=== PATIENT | male | born 1975 | race Caucasian/White ===

== ENCOUNTER 2016-08-12 19:11 | Inpatient (IN) | payer MEDICAID ==
[~2016-08-12] VITALS: Ht 167.6 cm; Wt 142.9 kg
[2016-08-12 20:00] VITALS: BP 142/85
[2016-08-12 20:04] LABS: Basophils # (auto) 0 uL; Basophils % (auto) 0.2 % (0.0-2.0); Eosinophils # (auto) 0.1 uL; Eosinophils % (auto) 1.7 % (0.0-7.0); Hematocrit 38.7 % (41.0-53.0); Hemoglobin 12.6 g/dL (13.5-17.5); Lymphocytes # (auto) 4.6 uL; Lymphocytes % (auto) 54.6 % (10.0-50.0); Mean Corpuscular Hemoglobin 27.1 pg (28.0-32.0); Mean Corpuscular Hgb Conc. 32.7 g/dL (32.0-36.0); Mean Corpuscular Volume 82.9 fL (80.0-100.0); Mean Platelet Volume 7.3 fL (7.4-10.4); Monocytes # (auto) 0.6 uL; Monocytes % (auto) 7.5 % (0.0-12.0); Platelet Count (auto) 236 10^3/uL (140-450); Red Cell Distribution Width 17.9 % (11.6-16.0); White Blood Cell 8.4 10^3/uL (4.4-10.8)
[2016-08-12 20:33] LABS: Albumin 3.1 g/dL (3.4-5.0); BUN/Creatinine Ratio 14.1; Bilirubin, Total 0.5 mg/dL (0.2-1.0); Calcium 8.7 mg/dL (8.5-10.1); Potassium 3.4 mmol/L (3.5-5.1); Total Protein 6.8 g/dL (6.4-8.2)
[2016-08-12 20:41] LABS: Urine Bilirubin Negative (Negative); Urine Blood Negative /uL (Negative); Urine Color Yellow (Yellow); Urine Glucose Normal (Normal); Urine Ketone Negative (Negative); Urine Mucus FEW (None Seen); Urine Nitrite Negative (Negative); Urine RBC <1 /hpf (0 - 3); Urine Squamous Epithelial Cell FEW /hpf (<5); Urine Urobilinogen Normal (Negative)
[2016-08-12] MEDS ORDERED: cefTRIAXone 1GM/50ML D5W 50 ML IV ONE (21:15)
[2016-08-12] MEDS ORDERED: HYDROcodone-ACET 10/325MG TAB PO ONE (21:30)
[2016-08-12] MEDS ORDERED: LEVOFLOXACIN 500MG 100 ML IV ONE (23:00)
[2016-08-12] MEDS ORDERED: HYDROmorphone HCL 2 MG/ML VL IV PRN (23:00)
[2016-08-12] MEDS ORDERED: ONDANSETRON HCL 4 MG/2 ML VIAL IV PRN (23:00)
[2016-08-12] MEDS: SODIUM CHLORIDE 0.9% 1,000 ML IV SCH (23:38)
[2016-08-13] VITALS (8 sets, daily range): BP systolic 104–150; BP diastolic 67–94
[2016-08-13] MEDS: ALBUTEROL SULF 2.5 MG/0.5ML(0.5%) NEB SOLN NEB PRN ×4 (03:10→22:34)
[2016-08-13] MEDS: IPRATROPIUM BROM 0.5 MG/2.5ML INH SOL NEB SCH ×6 (03:10→22:34)
[2016-08-13 06:32] LABS: Basophils # (auto) 0 uL; Basophils % (auto) 0.2 % (0.0-2.0); Eosinophils # (auto) 0.2 uL; Eosinophils % (auto) 2.1 % (0.0-7.0); Hematocrit 38.2 % (41.0-53.0); Hemoglobin 12.3 g/dL (13.5-17.5); Lymphocytes # (auto) 4.6 uL; Lymphocytes % (auto) 54.6 % (10.0-50.0); Mean Corpuscular Hemoglobin 27.3 pg (28.0-32.0); Mean Corpuscular Hgb Conc. 32.3 g/dL (32.0-36.0); Mean Corpuscular Volume 84.4 fL (80.0-100.0); Mean Platelet Volume 7.5 fL (7.4-10.4); Monocytes # (auto) 0.8 uL; Neutrophils # (auto) 2.9 uL; Neutrophils % (auto) 34.1 % (37.0-80.0); Platelet Count (auto) 216 10^3/uL (140-450); White Blood Cell 8.4 10^3/uL (4.4-10.8)
[2016-08-13 06:52] LABS: Albumin 2.9 g/dL (3.4-5.0); Calcium 7.9 mg/dL (8.5-10.1); Potassium 3.8 mmol/L (3.5-5.1)
[2016-08-13 06:54] LABS: BUN/Creatinine Ratio 15.2
[2016-08-13 07:07] LABS: Bilirubin, Total 0.3 mg/dL (0.2-1.0); Total Protein 6.7 g/dL (6.4-8.2)
[2016-08-13] MEDS ORDERED: HYDR-531 PO (08:59)
[2016-08-13] MEDS ORDERED: SACC250C PO (08:59)
[2016-08-13] MEDS ORDERED: LEVO-28 PO (08:59)
[2016-08-13] MEDS: SODIUM CHLORIDE 0.9% 1,000 ML IV SCH ×3 (09:02→18:53)
[2016-08-13] MEDS ORDERED: LEVOFLOXACIN 500MG 100 ML IV SCH (22:00)
[2016-08-13] MEDS ORDERED: cefTRIAXone 1GM/50ML D5W 50 ML IV SCH (22:00)
[2016-08-14] MEDS: SODIUM CHLORIDE 0.9% 1,000 ML IV SCH ×2 (00:11→06:41)
[2016-08-14] MEDS: ALBUTEROL SULF 2.5 MG/0.5ML(0.5%) NEB SOLN NEB PRN ×2 (02:40→07:38)
[2016-08-14] MEDS: IPRATROPIUM BROM 0.5 MG/2.5ML INH SOL NEB SCH ×3 (02:40→10:58)
[2016-08-14 05:00] VITALS: BP_SYST 109; BP_SYST 130; BP_DIAS 64; BP_DIAS 67
[2016-08-14 07:15] LABS: Basophils # (auto) 0 uL; Basophils % (auto) 0.3 % (0.0-2.0); Eosinophils # (auto) 0.1 uL; Eosinophils % (auto) 1.5 % (0.0-7.0); Hematocrit 38.8 % (41.0-53.0); Hemoglobin 12.5 g/dL (13.5-17.5); Lymphocytes % (auto) 45.6 % (10.0-50.0); Mean Corpuscular Hgb Conc. 32.2 g/dL (32.0-36.0); Mean Corpuscular Volume 83.8 fL (80.0-100.0); Mean Platelet Volume 7.2 fL (7.4-10.4); Monocytes # (auto) 0.6 uL; Monocytes % (auto) 7.3 % (0.0-12.0); Neutrophils # (auto) 3.9 uL; Neutrophils % (auto) 45.3 % (37.0-80.0); Platelet Count (auto) 248 10^3/uL (140-450); Red Cell Distribution Width 18.1 % (11.6-16.0); White Blood Cell 8.7 10^3/uL (4.4-10.8)
[2016-08-14 07:31] LABS: BUN/Creatinine Ratio 10.2; Calcium 7.8 mg/dL (8.5-10.1)
[2016-08-14 07:34] LABS: Bilirubin, Total 0.5 mg/dL (0.2-1.0)
[2016-08-14 08:00] VITALS: BP 157/92
[2016-08-14 09:00] VITALS: BP 157/92
[2016-08-14] MEDS ORDERED: LEVOFLOXACIN 500MG 100 ML IV SCH (10:00)
[2016-08-14 12:28] VITALS: BP 126/85
[2016-08-14 12:57] VITALS: BP 126/85
== END 2016-08-14 13:30 | disposition home or self-care (01) | DRG 501 ==
LOC: ER 19:12 → OVERFLOW 19:13 → WEST WING 23:46
PROVIDERS: ADMIT Family Medicine; ATTEND Internal Medicine
DX: N45.1 Epididymitis (principal); E44.0 Moderate protein-calorie malnutrition; Z88.2 Allergy status to sulfonamides; Z88.8 Allergy status to other drugs, medicaments and biological substances; Z68.43 Body mass index [BMI] 50.0-59.9, adult; E66.01 Morbid (severe) obesity due to excess calories; J45.909 Unspecified asthma, uncomplicated; N43.3 Hydrocele, unspecified; N49.2 Inflammatory disorders of scrotum; S30.22XA Contusion of scrotum and testes, initial encounter; Z71.89 Other specified counseling; Z80.9 Family history of malignant neoplasm, unspecified; R79.89 Other specified abnormal findings of blood chemistry
CPT/HCPCS: 36415; 76870; 80053; 81001; 85025; 94640; 96365; 96375; J0696; J1956; J2405

== ENCOUNTER 2016-12-24 17:47 | Emergency (ER) | payer MEDICAID ==
[~2016-12-24] VITALS: Ht 167.6 cm; Wt 136.1 kg
[~2016-12-24 17:47] MED LIST: HYDR-531 PO; LEVO-28 PO; SACC250C PO
[2016-12-24 22:33] VITALS: BP 139/92
== END 2016-12-24 23:25 | disposition home or self-care (01) ==
LOC: ER 17:51
DX: T82.49XA Other complication of vascular dialysis catheter, initial encounter (principal); Z46.6 Encounter for fitting and adjustment of urinary device; J45.909 Unspecified asthma, uncomplicated; Z87.442 Personal history of urinary calculi; Z88.2 Allergy status to sulfonamides; Z88.8 Allergy status to other drugs, medicaments and biological substances

== ENCOUNTER 2016-12-27 16:03 | Emergency (ER) | payer MEDICAID ==
[~2016-12-27] VITALS: Ht 167.6 cm; Wt 136.1 kg
[2016-12-27 16:30] LABS: Hemoglobin 12.9 g/dL (13.5-17.5); Mean Corpuscular Hemoglobin 26.7 pg (28.0-32.0); Monocytes # (auto) 1.1 uL; Neutrophils % (auto) 64.5 % (37.0-80.0)
[2016-12-27 16:32] LABS: Basophils # (auto) 0.2 uL; Basophils % (auto) 1.5 % (0.0-2.0); Eosinophils # (auto) 0.3 uL; Eosinophils % (auto) 2.3 % (0.0-7.0); Hematocrit 39.3 % (41.0-53.0); Lymphocytes # (auto) 2.7 uL; Lymphocytes % (auto) 22.3 % (10.0-50.0); Mean Corpuscular Hgb Conc. 32.9 g/dL (32.0-36.0); Mean Corpuscular Volume 81.2 fL (80.0-100.0); Mean Platelet Volume 7.7 fL (6.9-10.8); Monocytes % (auto) 9.4 % (0.0-12.0); Neutrophils # (auto) 7.7 uL; Platelet Count (auto) 80 10^3/uL (140-450); Red Cell Distribution Width 17.8 % (11.8-14.3); White Blood Cell 11.9 10^3/uL (4.4-10.8)
[2016-12-27 16:50] LABS: Albumin 3.3 g/dL (3.4-5.0); Bilirubin, Total 0.4 mg/dL (0.2-1.0); Calcium 8.6 mg/dL (8.5-10.1); Potassium 3.8 mmol/L (3.5-5.1); Total Protein 7.4 g/dL (6.4-8.2)
[2016-12-28 04:45] VITALS: BP 128/76
== END 2016-12-28 05:40 | disposition home or self-care (01) ==
LOC: ER 16:08
DX: R19.7 Diarrhea, unspecified (principal); J45.909 Unspecified asthma, uncomplicated; E66.01 Morbid (severe) obesity due to excess calories; Z87.442 Personal history of urinary calculi; Z88.2 Allergy status to sulfonamides; Z68.42 Body mass index [BMI] 45.0-49.9, adult
CPT/HCPCS: 36415; 80053; 81002; 85025

== ENCOUNTER 2019-04-22 19:30 | Inpatient (IN) | payer MEDICAID ==
[~2019-04-22] VITALS: Ht 165.1 cm; Wt 138.1 kg
[2019-04-22 19:30] VITALS: BP 103/69
[~2019-04-22 19:30] MED LIST changes: +ASPI81CH43 GT; +BENZ100C97 PO; +CHOL200031 PO; +DOCU100T15 PO; +DOXY100C2 PO; +FENO145T27 OR; +FURO40TA4 PO; +HYDR-4924 PO; +IBUP600T27 PO; +NAPR375T27 PO; +POTA10TA51 PO
[2019-04-22 20:00] VITALS: BP 103/69
[2019-04-22] MEDS ORDERED: ALBUTEROL SULF 2.5 MG/0.5ML(0.5%) NEB SOLN NEB PRN (20:00)
[2019-04-22] MEDS ORDERED: ONDANSETRON HCL 4 MG/2 ML VIAL IV PRN (20:00)
[2019-04-22] MEDS ORDERED: NITROGLYCERIN 0.4 MG SL TAB SL PRN (20:00)
[2019-04-22] MEDS ORDERED: MORPHINE SULF INJ 2 MG/ML SYRINGE 1ML IV PRN ×2 (20:00)
[2019-04-22] MEDS ORDERED: IPRATROPIUM BROM 0.5 MG/2.5ML INH SOL NEB PRN (20:00)
[2019-04-22] MEDS ORDERED: DEXTROSE (50%) 50ML SYRG IV PRN (20:00)
[2019-04-22] MEDS: InsuLIN REG 1unit/0.01ml Soln (100units/ml) SC SCH (21:50)
[2019-04-22] MEDS ORDERED: INSULIN LANTUS (GLARGINE) 1 /0.01ml (100units/ml) SC SCH ×2 (22:00)
[2019-04-22] MEDS: ACCU-CHEK COMFORT CURVE STRIP VI SCH (22:06)
[2019-04-22] MEDS: FAMOTIDINE (10MG/ML) 2ML VL IV SCH (22:06)
[2019-04-22] MEDS: AMIODARONE HCL 200 MG TAB PO SCH (22:06)
[2019-04-22] MEDS: HYDROcodone-ACET 5/325MG TAB PO PRN (22:15)
[2019-04-22 22:47] VITALS: BP 103/69
[2019-04-23] VITALS: BP 112/63
[2019-04-23 04:00] VITALS: BP 125/80
[2019-04-23 05:56] LABS: Basophils # (auto) 0.1 uL; Mean Corpuscular Hemoglobin 26.2 pg (28.0-32.0); Mean Corpuscular Hgb Conc. 31.7 g/dL (32.0-36.0); Monocytes # (auto) 0.8 uL; Nucleated Red Blood Cells % 0.1 %
[2019-04-23 05:57] LABS: Basophils % (auto) 0.8 % (0.0-2.0); Eosinophils # (auto) 0.9 uL; Eosinophils % (auto) 8.5 % (0.0-7.0); Hematocrit 37.3 % (41.0-53.0); Hemoglobin 11.8 g/dL (13.5-17.5); Lymphocytes # (auto) 2.1 uL; Mean Corpuscular Volume 82.6 fL (80.0-100.0); Monocytes % (auto) 7.5 % (0.0-12.0); Neutrophils % (auto) 64.2 % (37.0-80.0); Platelet Count (auto) 208 10^3/uL (140-450); Red Blood Cells 4.52 10^6/uL (4.5-5.90); Red Cell Distribution Width 19.5 % (11.8-14.3); White Blood Cell 10.9 10^3/uL (4.4-10.8)
[2019-04-23] MEDS: InsuLIN REG 1unit/0.01ml Soln (100units/ml) SC SCH ×4 (06:06→22:00)
[2019-04-23] MEDS: ACCU-CHEK COMFORT CURVE STRIP VI SCH ×4 (06:06→22:00)
[2019-04-23 06:09] LABS: Calcium 10.1 mg/dL (8.5-10.1); Potassium 3.9 mmol/L (3.5-5.1)
[2019-04-23 07:40] VITALS: BP 102/56
[2019-04-23] MEDS: AMIODARONE HCL 200 MG TAB PO SCH ×2 (10:02→22:46)
[2019-04-23] MEDS: FAMOTIDINE (10MG/ML) 2ML VL IV SCH ×2 (10:02→22:46)
[2019-04-23] MEDS: LACTULOSE 20Gm/30ML SOLN PO SCH (10:02)
[2019-04-23] MEDS: HYDROcodone-ACET 5/325MG TAB PO PRN (10:03)
[2019-04-23] MEDS: ENOXAPARIN SOD 40 MG/0.4 ML SYRINGE SC SCH (10:03)
[2019-04-23 11:50] VITALS: BP 121/78
[2019-04-23 15:35] VITALS: BP 119/80
[2019-04-23] MEDS ORDERED: FUROSEMIDE 40 MG/4 ML VIAL IV ONE (18:30)
[2019-04-23 20:00] VITALS: BP 117/79
[2019-04-23] MEDS: HYDROcodone-ACET 10/325MG TAB PO PRN (20:27)
[2019-04-23] MEDS: INSULIN LANTUS (GLARGINE) 1 /0.01ml (100units/ml) SC SCH (22:00)
[2019-04-24] VITALS: BP 110/69
[2019-04-24] MEDS ORDERED: diphenhdrAMINE HCL 25 MG CAP PO PRN (00:15)
[2019-04-24] MEDS: HYDROcodone-ACET 10/325MG TAB PO PRN (00:43)
[2019-04-24 04:00] VITALS: BP 120/71
[2019-04-24 05:17] LABS: Basophils # (auto) 0.1 uL; Basophils % (auto) 1.2 % (0.0-2.0); Eosinophils # (auto) 0.7 uL; Hematocrit 37.2 % (41.0-53.0); Hemoglobin 11.8 g/dL (13.5-17.5); Lymphocytes # (auto) 1.7 uL; Lymphocytes % (auto) 17.2 % (10.0-50.0); Mean Corpuscular Hemoglobin 25.9 pg (28.0-32.0); Mean Corpuscular Hgb Conc. 31.7 g/dL (32.0-36.0); Mean Corpuscular Volume 81.8 fL (80.0-100.0); Monocytes # (auto) 0.8 uL; Neutrophils # (auto) 6.7 uL; Neutrophils % (auto) 66.6 % (37.0-80.0); Platelet Count (auto) 190 10^3/uL (140-450); Red Blood Cells 4.56 10^6/uL (4.5-5.90)
[2019-04-24 05:18] LABS: Red Cell Distribution Width 20.1 % (11.8-14.3)
[2019-04-24 05:39] LABS: BUN/Creatinine Ratio 17.6; Calcium 9.7 mg/dL (8.5-10.1); Magnesium 1.7 mg/dL (1.6-2.6); Potassium 3.9 mmol/L (3.5-5.1)
[2019-04-24] MEDS: ACCU-CHEK COMFORT CURVE STRIP VI SCH ×4 (06:47→20:50)
[2019-04-24] MEDS: InsuLIN REG 1unit/0.01ml Soln (100units/ml) SC SCH ×4 (06:48→20:49)
[2019-04-24 07:54] VITALS: BP 115/65
[2019-04-24] MEDS: FAMOTIDINE (10MG/ML) 2ML VL IV SCH ×2 (09:41→21:07)
[2019-04-24] MEDS: AMIODARONE HCL 200 MG TAB PO SCH ×2 (09:41→21:07)
[2019-04-24] MEDS: ENOXAPARIN SOD 40 MG/0.4 ML SYRINGE SC SCH (09:42)
[2019-04-24] MEDS: LACTULOSE 20Gm/30ML SOLN PO SCH (09:42)
[2019-04-24 11:57] VITALS: BP 123/66
[2019-04-24 15:54] VITALS: BP 140/81
[2019-04-24 20:00] VITALS: BP 136/78
[2019-04-24] MEDS: INSULIN LANTUS (GLARGINE) 1 /0.01ml (100units/ml) SC SCH (20:49)
[2019-04-25] VITALS (7 sets, daily range): BP systolic 112–139; BP diastolic 74–82
[2019-04-25 04:54] LABS: Basophils # (auto) 0.1 uL; Lymphocytes % (auto) 20.9 % (10.0-50.0); Mean Corpuscular Hgb Conc. 31.7 g/dL (32.0-36.0); Monocytes # (auto) 0.6 uL; Nucleated Red Blood Cells % 0.1 %; Red Cell Distribution Width 19.5 % (11.8-14.3)
[2019-04-25 04:57] LABS: Basophils % (auto) 0.9 % (0.0-2.0); Eosinophils # (auto) 0.6 uL; Eosinophils % (auto) 7.9 % (0.0-7.0); Hematocrit 38.2 % (41.0-53.0); Hemoglobin 12.1 g/dL (13.5-17.5); Lymphocytes # (auto) 1.5 uL; Mean Corpuscular Hemoglobin 26.4 pg (28.0-32.0); Mean Corpuscular Volume 83.2 fL (80.0-100.0); Monocytes % (auto) 7.9 % (0.0-12.0); Neutrophils # (auto) 4.5 uL; Neutrophils % (auto) 62.4 % (37.0-80.0); Platelet Count (auto) 188 10^3/uL (140-450); Red Blood Cells 4.59 10^6/uL (4.5-5.90); White Blood Cell 7.2 10^3/uL (4.4-10.8)
[2019-04-25 05:31] LABS: Albumin 2.9 g/dL (3.4-5.0); BUN/Creatinine Ratio 14.1
[2019-04-25] MEDS: ACCU-CHEK COMFORT CURVE STRIP VI SCH ×4 (05:31→21:51)
[2019-04-25] MEDS: InsuLIN REG 1unit/0.01ml Soln (100units/ml) SC SCH ×4 (05:31→21:50)
[2019-04-25 05:33] LABS: Bilirubin, Total 0.5 mg/dL (0.2-1.0)
[2019-04-25] MEDS: LACTULOSE 20Gm/30ML SOLN PO SCH (08:40)
[2019-04-25] MEDS: AMIODARONE HCL 200 MG TAB PO SCH ×2 (08:41→21:40)
[2019-04-25] MEDS: FAMOTIDINE (10MG/ML) 2ML VL IV SCH ×2 (08:42→21:38)
[2019-04-25] MEDS: ENOXAPARIN SOD 40 MG/0.4 ML SYRINGE SC SCH (08:42)
[2019-04-25] MEDS ORDERED: AZITHROMYCIN 250 MG TAB PO ONE (11:00)
[2019-04-25] MEDS: ACETAMINOPHEN 500 MG TAB PO PRN (11:07)
[2019-04-25] MEDS: Glucerna Carbsteady SHAKE Vanilla 8oz PO SCH ×2 (14:07→17:32)
[2019-04-25] MEDS: INSULIN LANTUS (GLARGINE) 1 /0.01ml (100units/ml) SC SCH (21:50)
[2019-04-25] MEDS: HYDROcodone-ACET 10/325MG TAB PO PRN (23:45)
[2019-04-26 00:19] VITALS: BP 120/77
[2019-04-26 04:00] VITALS: BP 136/84
[2019-04-26 05:39] LABS: Basophils # (auto) 0.1 uL; Basophils % (auto) 1.1 % (0.0-2.0); Eosinophils # (auto) 0.5 uL; Mean Corpuscular Hgb Conc. 32.7 g/dL (32.0-36.0); Monocytes # (auto) 0.7 uL; Monocytes % (auto) 8.7 % (0.0-12.0); Neutrophils # (auto) 5.1 uL; White Blood Cell 8.3 10^3/uL (4.4-10.8)
[2019-04-26 05:41] LABS: Eosinophils % (auto) 5.8 % (0.0-7.0); Hemoglobin 11.8 g/dL (13.5-17.5); Lymphocytes % (auto) 23.4 % (10.0-50.0); Mean Corpuscular Hemoglobin 26.4 pg (28.0-32.0); Mean Corpuscular Volume 80.8 fL (80.0-100.0); Nucleated Red Blood Cells % 0.1 %; Platelet Count (auto) 205 10^3/uL (140-450); Red Blood Cells 4.45 10^6/uL (4.5-5.90); Red Cell Distribution Width 19.5 % (11.8-14.3)
[2019-04-26 06:01] LABS: BUN/Creatinine Ratio 13.7; Calcium 10.1 mg/dL (8.5-10.1); Potassium 3.6 mmol/L (3.5-5.1)
[2019-04-26] MEDS: ACCU-CHEK COMFORT CURVE STRIP VI SCH ×4 (06:45→21:29)
[2019-04-26] MEDS: InsuLIN REG 1unit/0.01ml Soln (100units/ml) SC SCH ×4 (06:46→21:29)
[2019-04-26 08:00] VITALS: BP 123/84
[2019-04-26] MEDS: Glucerna Carbsteady SHAKE Vanilla 8oz PO SCH ×3 (08:45→18:39)
[2019-04-26] MEDS: AZITHROMYCIN 250 MG TAB PO SCH (09:58)
[2019-04-26] MEDS: LACTULOSE 20Gm/30ML SOLN PO SCH (09:58)
[2019-04-26] MEDS: FAMOTIDINE (10MG/ML) 2ML VL IV SCH ×2 (09:58→21:28)
[2019-04-26] MEDS: ENOXAPARIN SOD 40 MG/0.4 ML SYRINGE SC SCH (09:59)
[2019-04-26] MEDS: AMIODARONE HCL 200 MG TAB PO SCH ×2 (09:59→21:28)
[2019-04-26] MEDS ORDERED: FUROSEMIDE 40 MG TAB PO ONE (11:30)
[2019-04-26] MEDS ORDERED: POTASSIUM CHL 20 Meq TABLET PO ONE (11:30)
[2019-04-26 12:00] VITALS: BP 112/75
[2019-04-26] MEDS ORDERED: MAGNESIUM SULFATE 1GM/100ML 100 ML IV ONE (14:15)
[2019-04-26 16:00] VITALS: BP 98/68
[2019-04-26 20:00] VITALS: BP 132/80
[2019-04-26] MEDS: ACETAMINOPHEN 500 MG TAB PO PRN (21:27)
[2019-04-26] MEDS: CARVEDILOL 3.125 MG TAB PO SCH (21:27)
[2019-04-27] VITALS: BP 117/78
[2019-04-27 04:00] VITALS: BP 113/64
[2019-04-27] MEDS: ACCU-CHEK COMFORT CURVE STRIP VI SCH ×3 (06:29→17:30)
[2019-04-27] MEDS: InsuLIN REG 1unit/0.01ml Soln (100units/ml) SC SCH ×3 (06:54→17:00)
[2019-04-27 08:00] VITALS: BP 117/76
[2019-04-27] MEDS: LACTULOSE 20Gm/30ML SOLN PO SCH (08:46)
[2019-04-27] MEDS: HYDROcodone-ACET 10/325MG TAB PO PRN (08:46)
[2019-04-27] MEDS: AMIODARONE HCL 200 MG TAB PO SCH (08:48)
[2019-04-27] MEDS: FAMOTIDINE (10MG/ML) 2ML VL IV SCH (08:49)
[2019-04-27] MEDS: CARVEDILOL 3.125 MG TAB PO SCH (08:49)
[2019-04-27] MEDS: Glucerna Carbsteady SHAKE Vanilla 8oz PO SCH ×3 (08:49→17:30)
[2019-04-27] MEDS: AZITHROMYCIN 250 MG TAB PO SCH (08:50)
[2019-04-27] MEDS: ENOXAPARIN SOD 40 MG/0.4 ML SYRINGE SC SCH (08:50)
[2019-04-27] MEDS ORDERED: FUROSEMIDE 40 MG TAB PO SCH (10:00)
[2019-04-27] MEDS ORDERED: POTASSIUM CHL 10 Meq TABLET PO SCH (10:00)
[2019-04-27 11:54] LABS: Potassium 3.8 mmol/L (3.5-5.1)
[2019-04-27 11:55] LABS: Calcium 10.1 mg/dL (8.5-10.1); Magnesium 1.8 mg/dL (1.6-2.6)
[2019-04-27 12:00] VITALS: BP 107/61
[2019-04-27] MEDS ORDERED: cefTAZidime 2GM/NS 50 ML IV SCH (14:00)
[2019-04-27] MEDS ORDERED: MAGNESIUM SULFATE 1GM/100ML 100 ML IV ONE (14:00)
[2019-04-27] MEDS ORDERED: DOXYCYCLINE 100 MG TAB/CAP PO ONE (14:15)
[2019-04-27] MEDS ORDERED: AMIO200T4 PO (14:29)
[2019-04-27] MEDS ORDERED: DOX100T PO (14:29)
[2019-04-27] MEDS ORDERED: FAM20T PO (14:29)
[2019-04-27] MEDS ORDERED: ASP81EC PO (14:29)
[2019-04-27] MEDS ORDERED: POTA-167 PO (14:29)
[2019-04-27] MEDS ORDERED: FURO40TA4 PO (14:29)
[2019-04-27] MEDS ORDERED: CAR3125T PO (14:29)
[2019-04-27 15:56] VITALS: BP 104/74
[2019-04-27 16:31] VITALS: BP 107/61
[2019-04-27] MEDS ORDERED: DOXYCYCLINE 100 MG TAB/CAP PO SCH ×2 (22:00)
[2019-04-28] MEDS ORDERED: FAMOTIDINE 20 MG TAB PO SCH (10:00)
[2019-04-28] MEDS ORDERED: ASPirin-EC 81 mg tab PO SCH (10:00)
== END 2019-04-27 20:35 | DRG 130 ==
LOC: ICU CENTRL 19:30 → DOU IN ICU 19:53
PROVIDERS: ADMIT Nurse Practitioner Acute Care; ATTEND Internal Medicine
PROC: 5A1955Z Respiratory Ventilation, Greater than 96 Consecutive Hours (ICD-10-PCS; principal; 2019-04-22)
DX: J96.20 Acute and chronic respiratory failure, unspecified whether with hypoxia or hypercapnia (principal); I50.43 Acute on chronic combined systolic (congestive) and diastolic (congestive) heart failure; J15.211 Pneumonia due to Methicillin susceptible Staphylococcus aureus; J15.8 Pneumonia due to other specified bacteria; D68.69 Other thrombophilia; E66.2 Morbid (severe) obesity with alveolar hypoventilation; E44.1 Mild protein-calorie malnutrition; I48.0 Paroxysmal atrial fibrillation; I48.92 Unspecified atrial flutter; J44.0 Chronic obstructive pulmonary disease with (acute) lower respiratory infection; Z93.0 Tracheostomy status; E11.9 Type 2 diabetes mellitus without complications; E78.5 Hyperlipidemia, unspecified; R33.9 Retention of urine, unspecified; Z87.01 Personal history of pneumonia (recurrent); Z68.43 Body mass index [BMI] 50.0-59.9, adult; Z88.8 Allergy status to other drugs, medicaments and biological substances
CPT/HCPCS: 36415; 71045; 80048; 80053; 82962; 83036; 83735; 83880; 85025; 87070; 87077; 87081; 87186; 87205; 94640; 97110; 97163; 97530; A4605; G0378; J0713; J2405; J3490